=== PATIENT | male | born 1960 | race Caucasian/White ===

== ENCOUNTER 2019-09-02 06:24 | Inpatient (IN) | payer MEDICARE, BC ==
[2019-08-30 12:51] VITALS: BMI 24.9
[2019-09-02] MEDS ORDERED: Sodium Chloride 0.9% 10 ML ONE (06:34)
[2019-09-02] MEDS ORDERED: Midazolam HCl 2 mg/2 ml Vial ONE (07:26)
[2019-09-02] MEDS ORDERED: Famotidine/PF 20 mg/2ml Vial ONE (07:27)
[2019-09-02 07:30] LABS: #Basophils 0.1 thou/uL (0.0-0.2); #Lymphocytes 2.2 thou/uL (1.20-3.40); #Monocytes 0.9 thou/uL (0.11-0.59); #Neutrophils 4.6 thou/uL (1.40-6.50); %Basophils 1.2 % (0.0-1.0); %Eosinophils 11.8 % (0.0-10.0); %Lymphocytes 24.4 % (21.0-51.0); %Monocytes 10.5 % (0.0-10.0); %Neutrophils 52.1 % (42.0-75.0); Hemoglobin 14.9 g/dL (14.0-18.0); Mean Corpuscular HGB CONC 32.7 g/dL (32.0-36.0); Mean Corpuscular Hemoglobin 30.6 pg (27.0-31.0); Mean Corpuscular Volume 93.7 fL (78.0-98.0); Platelet Count 472 thou/uL (130-400); RBC Distribution Width 11.9 % (11.5-14.5); Red Blood Cell (RBC) Count 4.87 mill/uL (4.70-6.10); White Blood Cell (WBC) Count 8.8 thou/uL (4.8-10.8)
[2019-09-02 07:45] LABS: Anion Gap 13 mmol/L (10-20); BUN (Urea Nitrogen) 12 mg/dL (8.4-25.7); Calc. Creatinine Clearance 51 mL/min (70-130); Calcium 9.7 mg/dL (7.8-10.44); Carbon Dioxide 26 mmol/L (23-31); Chloride 102 mmol/L (98-107); Estimated GFR-MDRD 57; Glucose 126 mg/dL (80-115); Potassium 4.4 mmol/L (3.5-5.1); Sodium 137 mmol/L (136-145)
[2019-09-02] MEDS ORDERED: Fentanyl 100 MCG/2 ML VIAL ONE ×3 (07:55→10:45)
[2019-09-02] MEDS ORDERED: HYDROmorphone 2 MG/ML VIAL ONE ×2 (07:56→11:11)
[2019-09-02] MEDS ORDERED: Meperidine HCl/PF 25 MG/ML VIAL SLOW IVP PRN (09:37)
[2019-09-02] MEDS ORDERED: HYDROmorphone 2 MG/ML VIAL SLOW IVP PRN (09:37)
[2019-09-02] MEDS ORDERED: Promethazine HCl 25 MG/ML VIAL IM PRN ×2 (09:37→10:39)
[2019-09-02] MEDS ORDERED: Promethazine HCl 25 MG/ML VIAL SLOW IVP PRN (09:37)
[2019-09-02] MEDS ORDERED: HYDROcodone/Acetaminophen 10/325 mg Tablet PO PRN (10:39)
[2019-09-02] MEDS ORDERED: Morphine 4 MG/ML VIAL SLOW IVP PRN (10:39)
[2019-09-02] MEDS ORDERED: diphenhydrAMINE 25 MG CAP PO PRN (10:39)
[2019-09-02] MEDS ORDERED: Ondansetron PF 4 MG/2 ML Vial IVP PRN (10:39)
[2019-09-02] MEDS ORDERED: Morphine 2 MG/ML SYRINGE SLOW IVP PRN (10:39)
[2019-09-02] MEDS ORDERED: Milk Of Magnesia 30 ML UDCUP PO PRN (10:39)
[2019-09-02] MEDS ORDERED: diphenhydrAMINE 50 MG/ML VIAL IVP PRN (10:39)
[2019-09-02] MEDS ORDERED: Mag-Al 1200 mg/1200 mg/30 ML UDCUP PO PRN (10:39)
[2019-09-02] MEDS ORDERED: Promethazine 25 MG TAB PO PRN (10:39)
[2019-09-02] MEDS ORDERED: traMADol HCl 50 MG TAB PO PRN ×2 (10:39)
--- NOTE | 2019-09-02 11:14 | OP ---
DATE OF PROCEDURE: 09/02/2019 VETERINARY PATHOLOGIST: Rakel Garcia PA-C PROCEDURE PERFORMED: Anterior cervical diskectomy C4 through C7, interbody arthrodesis, intervertebral biomechanical device, local morselized autograft, demineralized bone matrix, anterior titanium instrumentation C3 through C7. DESCRIPTION OF PROCEDURE: The patient was brought to the operating room and intubated. He was positioned supine with the head in modest extension on gel-filled donut. An incision was made in the right precervical area and dissected medial to the sternocleidomastoid muscle, identified the anterior cervical spine and the level was confirmed by x-ray. There was extensive and dramatic anterior osteophytic disease that was debrided. We placed distraction across the disk spaces, and completely decompressed the intervertebral discs, decompressing the neural elements at C3-C4, C4-C5, C5-C6, and C6-C7. Next, intervertebral biomechanical PEEK device was brought into the field, filled with demineralized bone matrix and local morselized autograft, and tapped into place securely at C3-C4, C4-C5, C5-C6, and C6-C7. Next, an anterior plate was brought into the field and secured to C3, C4, C5, C6, and C7 using two 14-mm screws at each level. The wound was then extensively irrigated and MAC hemostasis was secured. The wound was closed in anatomic layers over drain. Job ID: [id number]
[2019-09-02] MEDS: HYDROcodone/Acetaminophen 10/325 mg Tablet PO PRN ×3 (12:18→20:05)
[2019-09-02] MEDS: Sodium Chloride 0.9% 1,000 ML IV SCH ×2 (12:18→23:26)
[2019-09-02] MEDS ORDERED: CEFAZOLIN 2 GM in Premix Bag 1 BAG IVPB SCH (14:00)
[2019-09-02] MEDS ORDERED: PHENYLEPHRINE-NS 100 MCG/ML 10 ML SYRINGE ONE (14:41)
[2019-09-02] MEDS ORDERED: Dexamethasone 20 MG/5 ML VIAL ONE (14:41)
[2019-09-02] MEDS ORDERED: Ketorolac Tromethamine 30 MG/ML VIAL ONE (14:41)
[2019-09-02] MEDS ORDERED: PROPOFOL 200 MG/20 ML VIAL ONE (14:41)
[2019-09-02] MEDS ORDERED: Glycopyrrolate 0.2 MG/ML 5 ML SYRINGE ONE (14:41)
[2019-09-02] MEDS ORDERED: Ondansetron PF 4 MG/2 ML Vial ONE (14:41)
[2019-09-02] MEDS ORDERED: Rocuronium Bromide 10 MG/ML (10ML VIAL) ONE (14:41)
[2019-09-02] MEDS: metFORMIN 500 MG TAB PO SCH (16:03)
--- NOTE | 2019-09-02 16:03 | CON ---
DATE OF CONSULTATION: 09/02/2019 PRIMARY CARE PROVIDER: Out of town physician. Consult from Dr. Martin. HISTORY OF PRESENT ILLNESS: The patient is postop C-spine surgery with multilevel diskectomy and metallic fixation. He has some postop pain in his neck. He has had no fever, chills, sweats, chest pain, shortness of breath, nausea, or vomiting postoperatively. PAST MEDICAL HISTORY: 1. Diabetes mellitus type 2, on oral hypoglycemic agents. 2. He has a history of ulcerative colitis, post colostomy with an ileostomy. 3. He has a history of prostate cancer, post brachytherapy and has prostatism. 4. He is post splenectomy, post 2 shoulder surgeries. ALLERGIES: HE HAS NO KNOWN MEDICAL ALLERGIES. MEDICATIONS: 1. Metformin 1000 mg twice a day. 2. Flomax 0.4 mg a day. 3. Tadalafil 10 mg p.o. at bedtime. 4. Motrin 200 mg p.o. q.6 hours p.r.n. pain. 5. Hydrocodone 10/325. FAMILY HISTORY: Father, maternal grandmother, two aunts have diabetes. His father had coronary artery disease. SOCIAL HISTORY: His marital status is interesting. He is , but he and his ex- are living together as and . Code status, full. He does not smoke. Drinks very rare alcohol. No illicit drugs. REVIEW OF SYSTEMS: GENERAL: He has occasional vertigo episodes, currently none. No fainting. EYES: He has blurred vision with elevated blood sugar. No double vision or flashing lights. EARS, NOSE, AND THROAT: He has occasional sinus drainage. No bleeding nose. No trouble swallowing except currently postoperatively has a little sore throat from the intubation. No ear pain or drainage. CARDIAC: No chest pain, orthopnea, or paroxysmal nocturnal dyspnea. RESPIRATION: No wheezes, asthma, or shortness of breath. GASTROINTESTINAL: No nausea, vomiting, diarrhea, or constipation. GENITOURINARY: He has had a little hesitancy postop, has prostatism and takes Flomax for same. No hematuria. MUSCULOSKELETAL: No pain or swelling in his arms or legs. NEUROLOGICAL: No strokes, seizures, or focal weakness. PSYCHIATRIC: No anxiety or depression. SKIN: No bruising, bleeding, or rash. HEME/LYMPH: No tender or swollen lymph nodes in axilla, inguinal, or cervical area. PHYSICAL EXAMINATION: VITAL SIGNS: Temperature 97.4, pulse 92, respirations 16, pulse ox 96% on room air, blood pressure 175/81. HEAD, EYES, EARS, NOSE, AND THROAT: Pupils are equal, round, and reactive to light. Extraocular movements are intact. Sclerae are white. Tympanic membranes are clear. Nose is clear. Oral mucous membranes are wet. Dental hygiene is good. NECK: He has a large bandage on the right with a drain going to a bulb. CHEST: Clear to auscultation and percussion. HEART: Regular rate and rhythm. First and second heart sounds are clear. There are no appreciated murmurs or gallops. ABDOMEN: Soft. Bowel sounds are normal. There is no hepatosplenomegaly. No mass. No rebound. No bruits. EXTREMITIES: No cyanosis, clubbing, or edema. Pulses; carotid, radial, femoral, and dorsalis pedis pulses intact. SKIN: Warm and dry without bruises or rash. HEME/LYMPH: No tender or swollen lymph nodes in axilla, inguinal, or cervical area. NEUROLOGICAL: Cranial nerves 2 through 12 are intact. Moves all extremities. Deep tendon reflexes symmetric. IMAGING DATA: EKG; regular sinus rhythm, right bundle-branch block reviewed by myself. No x-rays are presented. LABORATORY DATA: Basic metabolic profile reveals only a glucose of 126, otherwise normal. CBC shows a mildly elevated platelet count of 472,000, otherwise essentially normal. ADMITTING DIAGNOSES: 1. Postop multilevel C-spine diskectomy with metallic fusion. 2. Diabetes mellitus type 2, on oral hypoglycemic agents. 3. Complete right bundle-branch block. 4. Prostatism. 5. Ileostomy. PLAN: The patient is stable postop. We will follow with you. Agree with continuation of his usual home medicines. Job ID: [id number]
[2019-09-02] MEDS: CEFAZOLIN 2 GM in Premix Bag 1 BAG IVPB SCH (18:02)
[2019-09-03] MEDS: CEFAZOLIN 2 GM in Premix Bag 1 BAG IVPB SCH (01:11)
[2019-09-03] MEDS: HYDROcodone/Acetaminophen 10/325 mg Tablet PO PRN ×4 (01:11→19:28)
[2019-09-03] MEDS: tiZANidine HCl 4 MG TAB PO PRN ×3 (01:11→18:40)
[2019-09-03] MEDS ORDERED: Chloraseptic Spray 180 ml Bottle PO PRN (05:51)
[2019-09-03] MEDS: Tamsulosin HCl 0.4 MG CAP PO SCH (05:56)
--- NOTE | 2019-09-03 06:22 | PRG ---
DATE OF SERVICE: SUBJECTIVE: The patient is postoperative day #1, status post C3-C7 ACDF. Following the surgery, he was transitioned to the Med/Surg floor, where his pain has been controlled with p.o. medications and occasional p.r.n. morphine. He is tolerating a soft diet, and he is voiding appropriately. He is complaining of some dysphagia and has a slightly sore voice. His PUNEET drain had 15 mL out overnight. OBJECTIVE: On exam this morning, the patient is in no acute distress. He has free active range of motion of all extremities. No focal motor weakness. His incision is clean and dry. He has slight hoarseness to the voice. There is a scant amount of serosanguineous blood in the PUNEET drain. PLAN: We will continue to work on pain control and advancing his diet. I have ordered Cepacol lozenges and p.r.n. Chloraseptic spray for his dysphagia. We could consider steroids for his dysphagia. However, considering his ulcerative colitis, we will hold for now as he has provided some GI upset in the past. We will continue to mobilize with the assistance of Physical Therapy. I anticipate home in the next 1 to 2 days. Job ID: [id number]
[2019-09-03] MEDS: metFORMIN 500 MG TAB PO SCH ×2 (08:17→17:50)
[2019-09-03] MEDS: Cepastat Lozenges 1 LOZ PO PRN ×3 (10:14→18:43)
[2019-09-03] MEDS: Sodium Chloride 0.9% 1,000 ML IV SCH (12:09)
--- NOTE | 2019-09-03 16:14 | PDOC.HOSPP ---
- Subjective Encounter Date: 09/03/19 Encounter Time: 16:00 Subjective: some sore throat, adequate pain control - Objective Vital Signs & Weight: Vital Signs (12 hours) Temp Pulse Pulse Resp BP BP BP 09/03/19 11:42 97.8 F 73 18 97/59 L 09/03/19 11:04 76 109/71 09/03/19 07:31 97.8 F 71 16 101/66 Pulse Ox Pulse Ox 09/03/19 11:42 99 09/03/19 11:04 98 09/03/19 07:31 97 Weight Weight 132 lb I&O: 09/02/19 09/03/19 09/04/19 06:59 06:59 06:59 Intake Total 855 Output Total 335 Balance 520 Result Diagrams: 09/02/19 07:15 09/02/19 07:15 Hospitalist ROS - Medication Medications: Active Medications Generic Name Dose Route Start Last Admin Trade Name Freq PRN Reason Stop Dose Admin Hydrocodone Bitart/Acetaminophen 2 tab 09/02/19 10:39 09/03/19 12:09 [place] 10/325 PO 2 tab Q4H PRN Administration PAIN (4-6) Sodium Chloride 1,000 mls @ 75 mls/hr 09/02/19 10:39 09/03/19 12:09 Normal Saline 0.9% IV Not Given .[id number] SHEKHAR Metformin HCl 1,000 mg 09/02/19 17:00 09/03/19 08:17 Glucophage PO 1,000 mg BID-WM SHEKHAR Administration Tamsulosin HCl 0.4 mg 09/03/19 06:00 09/03/19 05:56 Flomax PO 0.4 mg 0600 SHEKHAR Administration Throat Lozenges 1 erwin 09/03/19 05:50 09/03/19 15:19 Cepastat Lozenges PO 1 erwin Q2H PRN Administration Sore Throat Tizanidine HCl 4 mg 09/02/19 10:39 09/03/19 10:12 Zanaflex PO 4 mg Q6H PRN Administration MUSCLE SPASM - Exam Neck: no JVD Neck - other findings: bandaged anterior neck Heart: RRR, no murmur Respiratory: CTAB, no wheezes Gastrointestinal: soft, normal bowel sounds Extremities: no edema Hosp A/P (1) DM type 2 (diabetes mellitus, type 2) Status: Acute Qualifiers: Diabetes mellitus cytotechnologist insulin use: with mcfp use Diabetes mellitus complication status: without complication Qualified Code(s): E11.9 - Type 2 diabetes mellitus without complications; Z79.4 - senior care (current) use of insulin (2) Prostatism Code(s): N40.0 - BENIGN PROSTATIC HYPERPLASIA WITHOUT LOWER URINRY TRACT SYMP Status: Chronic (3) Ileostomy present Code(s): Z93.2 - ILEOSTOMY STATUS Status: Chronic (4) Right bundle branch block Code(s): I45.10 - UNSPECIFIED RIGHT BUNDLE-BRANCH BLOCK Status: Chronic - Plan doing well post-op cont accu/ss/metformin cont flomax
[2019-09-04] MEDS: Sodium Chloride 0.9% 1,000 ML IV SCH (02:24)
[2019-09-04] MEDS: HYDROcodone/Acetaminophen 10/325 mg Tablet PO PRN ×3 (03:03→11:06)
[2019-09-04] MEDS: Tamsulosin HCl 0.4 MG CAP PO SCH (05:14)
[2019-09-04] MEDS: tiZANidine HCl 4 MG TAB PO PRN ×2 (05:18→11:06)
[2019-09-04 07:55] VITALS: BP 101/68; TEMP 98.3
[2019-09-04] MEDS: metFORMIN 500 MG TAB PO SCH (08:21)
--- NOTE | 2019-09-04 08:47 | DIS ---
DATE OF ADMISSION: 09/02/2019 DATE OF DISCHARGE: 09/04/2019 HOSPITAL COURSE: The patient is a 59-year-old male, who underwent C3-C7 ACDF for cervical stenosis and cervical degenerative disease. Following the surgery, he was transitioned to the Med/Surg floor, where his pain was well controlled with p.o. medications, he is tolerating regular diet, and voiding appropriately. His PUNEET trended down and was removed on postoperative day #1. At this point, I feel it is appropriate for the patient to transition back to home and the patient is in agreement. We will follow up with the patient in 2 weeks. I have discussed home care precautions. He has been provided prescriptions for [place] and Zanaflex. Job ID: [id number]
--- NOTE | 2019-09-04 13:35 | EKG ---
Test Reason : PREOP Blood Pressure : / mmHG Vent. Rate : 089 BPM Atrial Rate : 089 BPM P-R Int : 206 ms QRS Dur : 132 ms QT Int : 388 ms P-R-T Axes : 055 -47 035 degrees QTc Int : 472 ms Normal sinus rhythm Left axis deviation Right bundle branch block Abnormal ECG No previous ECGs available Confirmed by BONNIE ISLAS (2) on 09/04/2019 1:35:04 PM Referred By: EMMA Confirmed By:BONNIE ISLAS
== END 2019-09-04 11:50 | disposition home or self-care (01) | DRG 472 ==
LOC: SURG A 06:24
PROVIDERS: ADMIT Neurological Surgery; ATTEND Neurological Surgery
PROC: 0RG20A0 Fusion of 2 or more Cervical Vertebral Joints with Interbody Fusion Device, Anterior Approach, Anterior Column, Open Approach (ICD-10-PCS; principal; 2019-09-02)
DX: M48.02 Spinal stenosis, cervical region (principal); M47.12 Other spondylosis with myelopathy, cervical region; M50.01 Cervical disc disorder with myelopathy, high cervical region; M25.78 Osteophyte, vertebrae; I45.10 Unspecified right bundle-branch block; J30.2 Other seasonal allergic rhinitis; E11.9 Type 2 diabetes mellitus without complications; M19.90 Unspecified osteoarthritis, unspecified site; N40.0 Benign prostatic hyperplasia without lower urinary tract symptoms; R13.10 Dysphagia, unspecified; Z93.2 Ileostomy status; Z90.49 Acquired absence of other specified parts of digestive tract; Z79.84 Long term (current) use of oral hypoglycemic drugs; Z85.46 Personal history of malignant neoplasm of prostate; Z79.899 Other long term (current) drug therapy
CPT/HCPCS: 76000; 80048; 85025; 93005; 93010; C1713; C1776; J0690; J1100; J1170; J1885; J2250; J2405; J2704; J3010; J3490; S0028

== ENCOUNTER 2019-09-18 09:55 | Outpatient (CLI) | payer MEDICARE, BC ==
--- NOTE | 2019-09-18 10:18 | RAD ---
EXAM: 3 views of the cervical spine HISTORY: Neck pain status post cervical fusion COMPARISON: None FINDINGS: AP, lateral, and open mouth odontoid views of the cervical spine shows the patient is statu s post fusion of C3-C7 with an anterior plate and screws. The disc spacers are seen in good position within the disc spaces. The vertebral bodies demonstrate normal alignment without subluxatio n. No prevertebral soft tissue swelling is seen. IMPRESSION: Status post cervical fusion without evidence of complication.
== END 2019-09-18 09:56 | disposition home or self-care (01) ==
LOC: TBSIIMAG 09:55
PROVIDERS: ATTEND Neurological Surgery
DX: M47.12 Other spondylosis with myelopathy, cervical region (principal); Z98.1 Arthrodesis status
CPT/HCPCS: 72040

== ENCOUNTER 2019-10-30 09:44 | Outpatient (CLI) | payer MEDICARE, BC ==
--- NOTE | 2019-10-30 10:23 | RAD ---
Cervical spine 4 views: 10/30/2019 COMPARISON: 09/18/2019 HISTORY: Cervical stenosis, neck surgery FINDINGS: Anterior discectomy and fusion hardware present extending from the C3-4 level through the C 6-7 level. Hardware is stable when compared to prior imaging. No prevertebral soft tissue swelling. Open-mouth odontoid view demonstrates a normal-appearing dens and C1-2 articulation. Stable multileve l mid cervical spine facet and uncovertebral osteophyte formation. IMPRESSION: Stable postoperative and degenerative changes within the cervical spine.
== END 2019-10-30 09:45 | disposition home or self-care (01) ==
LOC: TBSIIMAG 09:44
PROVIDERS: ATTEND Neurological Surgery
DX: M48.02 Spinal stenosis, cervical region (principal); M47.812 Spondylosis without myelopathy or radiculopathy, cervical region; Z98.890 Other specified postprocedural states
CPT/HCPCS: 72040

== ENCOUNTER 2020-01-02 05:59 | Outpatient (CLI) | payer MEDICARE, BC, OTHER ==
[2020-01-02 08:59] VITALS: BMI 24.5
[2020-01-02 11:19] LABS: #Basophils 0.1 thou/uL (0.0-0.2); #Lymphocytes 2.4 thou/uL (1.20-3.40); #Monocytes 0.8 thou/uL (0.11-0.59); #Neutrophils 5.1 thou/uL (1.40-6.50); %Basophils 0.9 % (0.0-1.0); %Eosinophils 10.7 % (0.0-10.0); %Lymphocytes 25.5 % (21.0-51.0); %Monocytes 8.6 % (0.0-10.0); %Neutrophils 54.3 % (42.0-75.0); Mean Corpuscular HGB CONC 31.5 g/dL (32.0-36.0); Mean Corpuscular Hemoglobin 29.9 pg (27.0-31.0); Mean Corpuscular Volume 94.7 fL (78.0-98.0); Mean Platelet Volume 7.1 fL (7.4-10.4); Platelet Count 454 thou/uL (130-400); RBC Distribution Width 12.5 % (11.5-14.5); Red Blood Cell (RBC) Count 4.69 mill/uL (4.70-6.10); White Blood Cell (WBC) Count 9.4 thou/uL (4.8-10.8)
[2020-01-02 11:36] LABS: Anion Gap 16 mmol/L (10-20); BUN (Urea Nitrogen) 14 mg/dL (8.4-25.7); Calc. Creatinine Clearance 63 mL/min (70-130); Carbon Dioxide 20 mmol/L (23-31); Chloride 105 mmol/L (98-107); Estimated GFR-MDRD 71; Glucose 100 mg/dL (80-115); Potassium 4.7 mmol/L (3.5-5.1); Sodium 136 mmol/L (136-145)
--- NOTE | 2020-01-02 17:36 | EKG ---
Test Reason : Blood Pressure : / mmHG Vent. Rate : 081 BPM Atrial Rate : 081 BPM P-R Int : 210 ms QRS Dur : 124 ms QT Int : 386 ms P-R-T Axes : 052 -39 028 degrees QTc Int : 448 ms Sinus rhythm with 1st degree A-V block Left axis deviation Right bundle branch block Abnormal ECG When compared with ECG of 02-SEP-2019 07:15, No significant change was found Confirmed by ANGELINA SANTIAGO, SConnor (4) on 01/02/2020 5:36:03 PM Referred By: EMMA Confirmed By:DR. Clover ALFARO MD
[2020-01-02 18:35] LABS: SARS-CoV-2 MS2 Positive; SARS-CoV-2 N Gene Negative; SARS-CoV-2 S Gene Negative; SARS-CoV-2 orf1ab Negative
== END 2020-01-02 06:00 | disposition home or self-care (01) ==
LOC: LABBT 05:59
PROVIDERS: ATTEND Neurological Surgery
DX: Z01.818 Encounter for other preprocedural examination (principal); Z11.59 Encounter for screening for other viral diseases; M54.16 Radiculopathy, lumbar region
CPT/HCPCS: 80048; 85025; 93005; U0003; 87635; 93010

== ENCOUNTER 2020-01-06 09:32 | Observation (INO) | payer MEDICARE, BC ==
[2020-01-06] MEDS ORDERED: Fentanyl 250 MCG/5 ML VIAL ONE (10:35)
[2020-01-06] MEDS ORDERED: PHENYLEPHRINE-NS 100 MCG/ML 10 ML SYRINGE ONE (11:31)
[2020-01-06] MEDS ORDERED: Lidocaine 1% PF 5 ML VIAL ONE (11:31)
[2020-01-06] MEDS ORDERED: Rocuronium Bromide 10 MG/ML (10ML VIAL) ONE (11:31)
[2020-01-06] MEDS ORDERED: PROPOFOL 200 MG/20 ML VIAL ONE (11:31)
[2020-01-06] MEDS ORDERED: EPHEDRINE 25 MG/5 ML SYRINGE ONE (11:31)
[2020-01-06] MEDS ORDERED: Ketorolac Tromethamine 30 MG/ML VIAL ONE (11:31)
[2020-01-06] MEDS ORDERED: Ondansetron PF 4 MG/2 ML Vial ONE (11:31)
[2020-01-06] MEDS ORDERED: Glycopyrrolate 0.2 MG/ML 5 ML SYRINGE ONE (11:31)
[2020-01-06] MEDS ORDERED: Fentanyl 100 MCG/2 ML VIAL ONE ×2 (12:34→12:59)
[2020-01-06] MEDS ORDERED: Morphine 4 MG/ML VIAL ONE (13:26)
[2020-01-06] MEDS ORDERED: Morphine 4 MG/ML VIAL SLOW IVP PRN (13:31)
[2020-01-06] MEDS ORDERED: HYDROcodone/Acetaminophen 10/325 mg Tablet PO PRN (13:31)
[2020-01-06] MEDS ORDERED: Bisacodyl 10 MG SUPP PR PRN (13:31)
[2020-01-06] MEDS ORDERED: diphenhydrAMINE 50 MG/ML VIAL IVP PRN (13:31)
[2020-01-06] MEDS ORDERED: Promethazine HCl 12.5 MG SUPP PR PRN (13:31)
[2020-01-06] MEDS ORDERED: Morphine 2 MG/ML SYRINGE SLOW IVP PRN (13:31)
[2020-01-06] MEDS ORDERED: Mag-Al 1200 mg/1200 mg/30 ML UDCUP PO PRN (13:31)
[2020-01-06] MEDS ORDERED: diphenhydrAMINE 25 MG CAP PO PRN (13:31)
[2020-01-06] MEDS ORDERED: Promethazine HCl 25 MG/ML VIAL IM PRN (13:31)
[2020-01-06] MEDS ORDERED: traMADol HCl 50 MG TAB PO PRN ×2 (13:31)
[2020-01-06] MEDS ORDERED: Milk Of Magnesia 30 ML UDCUP PO PRN (13:31)
[2020-01-06] MEDS ORDERED: Promethazine 25 MG TAB PO PRN (13:31)
[2020-01-06] MEDS ORDERED: Ondansetron PF 4 MG/2 ML Vial IVP PRN (13:32)
[2020-01-06] MEDS ORDERED: HYDROmorphone 2 MG/ML VIAL ONE (13:48)
[2020-01-06] MEDS ORDERED: Tamsulosin HCl 0.4 MG CAP ONE (14:50)
[2020-01-06 16:11] VITALS: BMI 24.1
[2020-01-06] MEDS: Sodium Chloride 0.9% 1,000 ML IV SCH (16:19)
[2020-01-06] MEDS: metFORMIN 500 MG TAB PO SCH (17:20)
[2020-01-06] MEDS: HYDROcodone/Acetaminophen 10/325 mg Tablet PO PRN ×2 (18:38→22:54)
--- NOTE | 2020-01-06 18:58 | OP ---
DATE OF PROCEDURE: 01/06/2020 VENETIAN BLIND INSTALLER: Rakel Garcia PA-C PROCEDURES PERFORMED: L4-L5 laminectomy, posterolateral arthrodesis, pedicle screw instrumentation L4-L5, demineralized bone matrix, and local morselized autograft. DESCRIPTION OF PROCEDURE: The patient was brought to the operating room and intubated. He was rolled in a prone position on gel-filled chest rolls. An incision was made exposing L4-L5 bilaterally and level was confirmed by x-ray. We performed partial L4-L5 laminectomy and facetectomies bilaterally for the purpose of decompression. Pedicle screws were then placed at L4 and L5 bilaterally using lateral fluoroscopic guidance. The paola was secured between the screws, connected by nuts, which were final tightened. The wound was then extensively irrigated. MAC hemostasis was secured. A combination of demineralized bone matrix and local morselized autograft was laid over the lamina posterolateral surfaces for the purpose of arthrodesis. Vancomycin powder was applied and the wound was closed in anatomic layers. Job ID: [id number]
[2020-01-06] MEDS: CEFAZOLIN 1 GM in Sodium Chloride 0.9% 100 ML IVPB SCH (21:32)
[2020-01-06] MEDS: tiZANidine HCl 4 MG TAB PO PRN (21:35)
[2020-01-06] MEDS ORDERED: CEFAZOLIN 1 GM VIAL SLOW IVP SCH (22:00)
[2020-01-07] MEDS: Sodium Chloride 0.9% 1,000 ML IV SCH (04:19)
[2020-01-07] MEDS ORDERED: Tamsulosin HCl 0.4 MG CAP PO SCH (06:00)
[2020-01-07] MEDS: CEFAZOLIN 1 GM in Sodium Chloride 0.9% 100 ML IVPB SCH (06:25)
[2020-01-07 08:43] VITALS: BP 100/63; TEMP 97.8
[2020-01-07] MEDS: HYDROcodone/Acetaminophen 10/325 mg Tablet PO PRN (08:46)
[2020-01-07] MEDS: metFORMIN 500 MG TAB PO SCH (08:46)
[2020-01-07] MEDS ORDERED: TADALAFIL PO SCH (09:00)
[2020-01-07] MEDS: tiZANidine HCl 4 MG TAB PO PRN (10:52)
--- NOTE | 2020-01-07 13:52 | DIS ---
DATE OF ADMISSION: 01/06/2020 DATE OF DISCHARGE: 01/07/2020 The patient is a 60-year-old male who was evaluated recently in our clinic for progressive back and leg pain and found to have progressive degenerative listhesis and stenosis at L4-L5. The patient underwent L4-L5 decompression and fusion on 01/06/2020. Following the surgery, he was transitioned to the Med/Surg floor where his pain was well controlled with p.o. medications, he is tolerating a regular diet, and he is voiding appropriately. He has walked short distance in the hallway without any difficulty. On exam this morning, he is awake, alert, in no acute distress. He has free active range of motion of all extremities. No focal motor weakness. Incision is clean, dry, and intact. We will plan to dismiss the patient to home. I have discussed home care and precautions. He has been provided scripts with [place], Zanaflex, and Keflex. I have checked [employer] SP[employer]ER AWARxE prior to discharge. Job ID: [id number]
== END 2020-01-07 11:03 | disposition home or self-care (01) ==
LOC: SDC 09:32 → SURG A 15:44
PROVIDERS: ADMIT Neurological Surgery; ATTEND Neurological Surgery
PROC: 0SG0071 Fusion of Lumbar Vertebral Joint with Autologous Tissue Substitute, Posterior Approach, Posterior Column, Open Approach (ICD-10-PCS; principal; 2020-01-06)
DX: M43.16 Spondylolisthesis, lumbar region (principal); M54.16 Radiculopathy, lumbar region; M48.061 Spinal stenosis, lumbar region without neurogenic claudication; M47.812 Spondylosis without myelopathy or radiculopathy, cervical region; E11.9 Type 2 diabetes mellitus without complications; F32.9 Major depressive disorder, single episode, unspecified; F41.9 Anxiety disorder, unspecified; Z79.2 Long term (current) use of antibiotics; Z79.84 Long term (current) use of oral hypoglycemic drugs; Z79.899 Other long term (current) drug therapy; Z90.49 Acquired absence of other specified parts of digestive tract; Z90.81 Acquired absence of spleen; Z98.1 Arthrodesis status
CPT/HCPCS: 20930; 20936; 22612; 22840; 76000; 96361 ×2; 96365; 96375; 96376; C1713 ×2; C1768; G0378 ×2; J0690; J1170; J1885; J2001; J2270; J2405; J2704; J3010; J3370; J3490

== ENCOUNTER 2020-01-22 13:01 | Outpatient (CLI) | payer MEDICARE, BC ==
--- NOTE | 2020-01-22 14:03 | RAD ---
LUMBAR SPINE: 01/22/20 Two views. HISTORY: Postop. No comparison. There are pedicle screws and rods transfixing L4 and L5. Loss of disc space at L4-5 and at L5-S1. The re is a grade I to II spondylolisthesis of L4-5. Anterior bridging osteophytes at L4-5 and L5-S1. Large bridging osteophytes were also seen at L1-2, L2-3, and L3-4. Facet hypertrophy. Alignment is ot herwise preserved. IMPRESSION: Postoperative and degenerative changes of the lumbar spine as described. POS: AGW
== END 2020-01-22 13:02 | disposition home or self-care (01) ==
LOC: TBSIIMAG 13:01
PROVIDERS: ATTEND Neurological Surgery
DX: M47.26 Other spondylosis with radiculopathy, lumbar region (principal); Z98.890 Other specified postprocedural states
CPT/HCPCS: 72100